=== PATIENT | male | born 1960 | race Caucasian/White ===

== ENCOUNTER 2016-07-20 20:50 | Emergency (ER) | payer MEDICAID ==
[2016-07-20 23:06] VITALS: BP 152/86
[2016-07-20] MEDS ORDERED: Ketorolac 30 MG/ML SDV IVPUSH ONE (23:19)
[2016-07-20] MEDS ORDERED: Sodium Chloride 0.9% 1,000 ML IV SCH (23:30)
[2016-07-21] MEDS ORDERED: HYDROmorphone 0.5 MG/0.5 ML Syringe IVPUSH ONE (00:33)
[2016-07-21] MEDS ORDERED: Ibuprofen 600 MG Tab PO ONE (00:33)
[2016-07-21] MEDS ORDERED: Doxycycline 100 MG in Sodium Chloride 0.9% 100 ML IV ONE (00:34)
--- NOTE | 2016-07-21 00:40 | EDM.PDOC ---
<Vijaya Sherman - Last Filed: 07/21/16 00:34> ED HISTORY OF PRESENT ILLNESS - General Chief Complaint: Fever Stated Complaint: FEVER,BODY ACHES,COUGH Time Seen by Provider: 07/20/16 23:00 Source: Reports: Patient, Family History Limitations: Reports: No limitations - History of Present Illness INITIAL COMMENTS - FREE TEXT/NARRATIVE: pt has been chilling with severe body aches. He has been sick since thursday. There grand children were with them a few days ago and were quite ill. Timing/Duration: Reports: Day(s):, Getting worse Location, General: Reports: chest Associated Symptoms: Reports: chest pain, cough, fever/chills, shortness of breath - Related Data Allergies/ADRs: Allergies Allergy/AdvReac Type Severity Reaction Status Date / Time No Known Allergies Allergy Verified 07/20/16 23:22 Home Meds: Home Meds Phenylephrine/Dm/Acetaminop/Gg [Tylenol Cold & Flu Severe Cplt] 1 each PO ASDIRECTED PRN 07/20/16 [History] Past Medical History - Infectious Disease History Infectious Disease History: Reports: Chicken pox Social & Family History - Tobacco Use Smoking Status *Q: Current Every Day Smoker Years of Tobacco use: 35 Packs/Tins Daily: 1 Used Tobacco, but Quit: No Second Hand Smoke Exposure: Yes - Caffeine Use Caffeine Use: Reports: Coffee, Soda - Alcohol Use Days Per Week of Alcohol Use: 2 Number of Drinks Per Day: 3 Total Drinks Per Week: 6 - Recreational Drug Use Recreational Drug Use: No ED ROS GENERAL - Review of Systems Review Of Systems: See Below Constitutional: Reports: fever, chills HEENT: Reports: No symptoms Respiratory: Reports: wheezing, cough, sputum Cardiovascular: Reports: No symptoms Endocrine: Reports: no symptoms GI/Abdominal: Reports: No symptoms : Reports: no symptoms Musculoskeletal: Reports: muscle pain, muscle stiffness Skin: Reports: no symptoms Neurological: Reports: no symptoms ED EXAM, GENERAL - Physical Exam Exam: See Below Free Text/Narrative:: pt is coughing markedly and has severe body aches. Exam Limited By: No limitations General Appearance: alert, anxious Ears: normal TMs Nose: normal inspection Throat/Mouth: Normal inspection Head: atraumatic Neck: normal inspection Respiratory/Chest: decreased breath sounds, wheezing Cardiovascular: regular rate, rhythm GI/Abdominal: soft, non tender (Male) Exam: Deferred Rectal (Males) Exam: Deferred Back Exam: normal inspection Extremities: normal inspection Neurological: alert, oriented Psychiatric: normal affect Course - Vital Signs Last Recorded V/S: Last Vital Signs Temp 37.1 C 07/21/16 00:54 Pulse 94 07/21/16 00:11 Resp 18 07/21/16 00:11 BP 152/86 H 07/21/16 00:11 Pulse Ox 93 L 07/21/16 00:11 - Orders/Labs/Meds Orders: Active Orders 24 hr Category Date Time Status RT Aerosol Therapy [RC] ASDIRECTED Care 07/21/16 00:41 Active Chest 2V [CR] Stat Exams 07/20/16 23:18 Taken BABESIA MICROTI IGG AND IGM [REF] Stat Lab 07/20/16 23:27 Received CULTURE BLOOD [BC] Urgent Lab 07/21/16 00:20 Received CULTURE BLOOD [BC] Urgent Lab 07/21/16 00:25 Received CULTURE RESPIRATORY + SMEAR [RM] Stat Lab 07/21/16 00:58 Ordered CULTURE STREP A CONFIRMATION [RM] Stat Lab 07/20/16 23:27 Results EHRLICHIA CHAFFEENSIS, IGG&IGM [REF] Stat Lab 07/20/16 23:27 Received LYME AB SCREEN RFLX [REF] Stat Lab 07/20/16 23:27 Received STREP SCRN A RAPID W CULT CONF [RM] Stat Lab 07/20/16 23:27 Results Sodium Chloride 0.9% [Normal Saline] 1,000 ml Med 07/20/16 23:30 Active IV ASDIRECTED Sodium Chloride 0.9% [Normal Saline] 1,000 ml Med 07/21/16 00:45 Active IV ASDIRECTED Blood Culture x2 Reflex Set [OM.PC] Urgent Oth 07/21/16 00:14 Ordered Medication Orders Sodium Chloride (Normal Saline) 1,000 mls @ 999 mls/hr IV ASDIRECTED [facility] Last Admin: 07/20/16 23:55 Dose: 999 mls/hr Sodium Chloride (Normal Saline) 1,000 mls @ 999 mls/hr IV ASDIRECTED [facility] Labs: Laboratory Tests 07/20/16 07/20/16 07/20/16 Range/Units 23:27 23:27 23:27 WBC 5.8 (4.5-11.0) K/uL RBC 4.41 (4.30-5.90) M/uL Hgb 15.5 H (12.0-15.0) g/dL Hct 43.7 (40.0-54.0) % MCV 99 H (80-98) fL MCH 35 H (27-31) pg MCHC 36 (32-36) % Plt Count 138 L (150-400) K/uL Neut % (Auto) 73 H (36-66) % Lymph % (Auto) 17 L (24-44) % [place] % (Auto) 10 H (2-6) % Eos % (Auto) 0 L (2-4) % Baso % (Auto) 1 (0-1) % Sodium 133 L (140-148) mmol/L Potassium 3.6 (3.6-5.2) mmol/L Chloride 98 L (100-108) mmol/L Carbon Dioxide 25 (21-32) mmol/L Anion Gap 13.6 (5.0-14.0) mmol/L BUN 8 (7-18) mg/dL Creatinine 1.0 (0.8-1.3) mg/dL Est Cr Clr Drug Dosing 88.21 mL/min Estimated GFR (MDRD) > 60 (>60) Glucose 106 (74-106) mg/dL Calcium 8.3 L (8.5-10.1) mg/dL Total Bilirubin 0.5 (0.2-1.0) mg/dL AST 25 (15-37) U/L ALT 26 (12-78) U/L Alkaline Phosphatase 56 (46-116) U/L C-Reactive Protein 1.02 H (0.0-0.3) mg/dL Total Protein 7.6 (6.4-8.2) g/dL Albumin 3.9 (3.4-5.0) g/dL Globulin 3.7 H (2.3-3.5) g/dL Albumin/Globulin Ratio 1.1 L (1.2-2.2) Urine Color Urine Appearance Urine pH (4.5-8.0) Ur Specific [place] (1.008-1.030) Urine Protein (NEGATIVE) mg/dL Urine Glucose (UA) (NEGATIVE) mg/dL Urine Ketones (NEGATIVE) mg/dL Urine Occult Blood (NEGATIVE) Urine Nitrite (NEGAITVE) Urine Bilirubin (NEGATIVE) Urine Urobilinogen (NORMAL) mg/dL Ur Leukocyte Esterase (NEGATIVE) Urine RBC (0-5) Urine WBC (0-5) Ur Epithelial Cells Amorphous Sediment Urine Bacteria Urine Mucus 07/21/16 Range/Units 01:08 WBC (4.5-11.0) K/uL RBC (4.30-5.90) M/uL Hgb (12.0-15.0) g/dL Hct (40.0-54.0) % MCV (80-98) fL MCH (27-31) pg MCHC (32-36) % Plt Count (150-400) K/uL Neut % (Auto) (36-66) % Lymph % (Auto) (24-44) % [place] % (Auto) (2-6) % Eos % (Auto) (2-4) % Baso % (Auto) (0-1) % Sodium (140-148) mmol/L Potassium (3.6-5.2) mmol/L Chloride (100-108) mmol/L Carbon Dioxide (21-32) mmol/L Anion Gap (5.0-14.0) mmol/L BUN (7-18) mg/dL Creatinine (0.8-1.3) mg/dL Est Cr Clr Drug Dosing mL/min Estimated GFR (MDRD) (>60) Glucose (74-106) mg/dL Calcium (8.5-10.1) mg/dL Total Bilirubin (0.2-1.0) mg/dL AST (15-37) U/L ALT (12-78) U/L Alkaline Phosphatase (46-116) U/L C-Reactive Protein (0.0-0.3) mg/dL Total Protein (6.4-8.2) g/dL Albumin (3.4-5.0) g/dL Globulin (2.3-3.5) g/dL Albumin/Globulin Ratio (1.2-2.2) Urine Color Yellow Urine Appearance Clear Urine pH 6.0 (4.5-8.0) Ur Specific [place] 1.020 (1.008-1.030) Urine Protein Negative (NEGATIVE) mg/dL Urine Glucose (UA) Normal (NEGATIVE) mg/dL Urine Ketones 15 H (NEGATIVE) mg/dL Urine Occult Blood Moderate (NEGATIVE) Urine Nitrite Negative (NEGAITVE) Urine Bilirubin Negative (NEGATIVE) Urine Urobilinogen Normal (NORMAL) mg/dL Ur Leukocyte Esterase Negative (NEGATIVE) Urine RBC 0-5 (0-5) Urine WBC 0-5 (0-5) Ur Epithelial Cells Rare Amorphous Sediment Not seen Urine Bacteria Few Urine Mucus Few Meds: Medications Generic Name Dose Route Start Last Admin Trade Name Freq PRN Reason Stop Dose Admin Sodium Chloride 1,000 mls @ 999 mls/hr 07/20/16 23:30 07/20/16 23:55 Normal Saline IV 999 mls/hr ASDIRECTED JANA Administration Sodium Chloride 1,000 mls @ 999 mls/hr 07/21/16 00:45 Normal Saline IV ASDIRECTED JANA Discontinued Medications Generic Name Dose Route Start Last Admin Trade Name Freq PRN Reason Stop Dose Admin Albuterol 2.5 mg 07/21/16 00:41 07/21/16 00:55 Proventil Neb Soln NEB 07/21/16 00:42 2.5 mg ONETIME ONE Administration Hydromorphone HCl 0.5 mg 07/21/16 00:33 07/21/16 00:43 Dilaudid IVPUSH 07/21/16 00:34 0.5 mg ONETIME ONE Administration Doxycycline Hyclate 100 mg/ 100 mls @ 100 mls/hr 07/21/16 00:34 07/21/16 00: 45 Sodium Chloride IV 07/21/16 01:33 100 mls/hr ONETIME ONE Administration Ibuprofen 600 mg 07/21/16 00:33 07/21/16 00:54 Motrin PO 07/21/16 00:34 600 mg ONETIME ONE Administration Ketorolac Tromethamine 30 mg 07/20/16 23:19 07/20/16 23:56 Toradol IVPUSH 07/20/16 23:20 30 mg ONETIME ONE Administration - Re-Assessments/Exams Free Text/Narrative Re-Assessment/Exam: 07/21/16 00:39 pt was given 2 liters of fluid doxycline 100mg was given iv. He does have a history of a tick bite late fall. The wbc is not elevated, platlets are borderline low, His stept was neg The influa and b were neg. Departure - Departure Disposition: Home, Self-Care 01 Clinical Impression: Acute bronchitis Forms: ED Department Discharge Additional Instructions: Take doxycycline 100 mg twice daily for one week. For cough he may use the guaifenesin with codeine cough medicine (240 mL) take 10 mL or 2 teaspoons every 4-6 hours as needed for cough. This medication can cause sedation so use with caution see your if you're not better in a few days. Return to ER at any time if needed <Dillon Pan - Last Filed: 07/21/16 01:59> Departure - Departure Time of Disposition: 01:56 Condition: fair
[2016-07-21] MEDS ORDERED: Albuterol 0.083% 2.5 MG/3 ML Neb Soln NEB ONE (00:41)
[2016-07-21] MEDS ORDERED: Sodium Chloride 0.9% 1,000 ML IV SCH (00:45)
--- NOTE | 2016-07-21 10:33 | CR ---
Mild cardiomegaly. No focal consolidation. Faint density right midlung zone. Difficult to exclude a pulmonary nodule. Recommend comparison to remote x-rays or CT noncontrast chest follow-up..
== END 2016-07-21 02:18 | disposition home or self-care (01) ==
LOC: JP.ED 20:50
DX: J20.9 Acute bronchitis, unspecified (principal); F17.200 Nicotine dependence, unspecified, uncomplicated; Z79.899 Other long term (current) drug therapy
CPT/HCPCS: 36415; 71020; 80053; 81001; 85025; 86140; 86618; 86666; 86753; 87040; 87081; 87205; 87430; 87804; 94640; 96361; 96374; 96375; 99284; A9270; J1170; J1885; J7030; J7040

== ENCOUNTER 2017-09-20 09:39 | Emergency (ER) | payer MEDICAID ==
[2017-09-20 10:33] VITALS: BP 106/83
--- NOTE | 2017-09-20 10:47 | EDM.PDOC ---
ED HPI GENERAL MEDICAL PROBLEM - General Chief Complaint: Respiratory Problem Stated Complaint: COUGH FEVER Time Seen by Provider: 09/20/17 10:40 Source of Information: Reports: Patient, RN Notes Reviewed History Limitations: Reports: No Limitations - History of Present Illness INITIAL COMMENTS - FREE TEXT/NARRATIVE: 56-year-old gentleman presents emergency department today complaint of cough and shortness of breath, he does use tobacco products does have a history of recurrent bronchitis has felt feverish at home, yellow sputum production and chest pain with a cough Headache Pain Score (Numeric/FACES): 7 - Related Data Allergies Allergy/AdvReac Type Severity Reaction Status Date / Time No Known Allergies Allergy Verified 09/20/17 10:33 Home Meds: Home Meds Phenylephrine/Dm/Acetaminop/Gg [Tylenol Cold & Flu Severe Cplt] 1 each PO ASDIRECTED PRN 07/20/16 [History] Hydrochlorothiazide 1 tab PO DAILY 09/20/17 [History] Past Medical History Cardiovascular History: Reports: Hypertension - Infectious Disease History Infectious Disease History: Reports: Chicken Pox Social & Family History - Tobacco Use Smoking Status *Q: Light Tobacco Smoker Years of Tobacco use: 32 Packs/Tins Daily: 0.5 - Caffeine Use Caffeine Use: Reports: Coffee, Soda - Recreational Drug Use Recreational Drug Use: No ED ROS GENERAL - Review of Systems Review Of Systems: See Below Constitutional: Reports: Fever, Chills HEENT: Reports: No Symptoms Respiratory: Reports: Shortness of Breath, Cough, Sputum. Denies: Wheezing Cardiovascular: Reports: Chest Pain (With a cough) GI/Abdominal: Reports: No Symptoms : Reports: No Symptoms Musculoskeletal: Reports: No Symptoms Skin: Reports: No Symptoms ED EXAM, GENERAL - Physical Exam Exam: See Below Exam Limited By: No Limitations General Appearance: Alert, WD/WN, No Apparent Distress Eye Exam: Bilateral Eye: Normal Inspection Ears: Normal External Exam, Normal Canal, Hearing Grossly Normal, Normal TMs Nose: Normal Inspection, Normal Mucosa, No Blood Throat/Mouth: Normal Inspection, Normal Lips, Normal Teeth, Normal Gums, Normal Oropharynx, Normal Voice, No Airway Compromise Head: Atraumatic, Normocephalic Neck: Normal Inspection, Supple, Non-Tender, Full Range of Motion Respiratory/Chest: No Respiratory Distress, Lungs Clear, Normal Breath Sounds, No Accessory Muscle Use, Chest Non-Tender Cardiovascular: Regular Rate, Rhythm, No Murmur Course - Vital Signs Last Recorded V/S: Last Vital Signs Temp 98.7 F 09/20/17 10:31 Pulse 93 09/20/17 10:31 Resp 14 09/20/17 10:31 BP 106/83 09/20/17 10:31 Pulse Ox 93 L 09/20/17 10:31 Departure - Departure Time of Disposition: 10:46 Disposition: Home, Self-Care 01 Condition: Good Clinical Impression: Acute bronchitis Qualifiers: Bronchitis organism: other organism Qualified Code(s): J20.8 - Acute bronchitis due to other specified organisms - Discharge Information Referrals: Angie Diehl MD [Primary Care Provider] - Additional Instructions: Take full course of antibiotics, use albuterol inhaler as needed for shortness of breath symptoms, Please followup with your primary care provider in 5-7 days if not better, please call return to the emergency department with worsening of symptoms. - Assessment/Plan Plan: Assessment Acuity = acute Site and laterality = bronchitis complicated in a gentleman history of tobacco use and dependence Etiology = suspicious for bacterial cause Manifestations = cough, dyspnea Location of injury = Home Lab values = none Plan Prescription written for doxycycline 100 mg by mouth twice a day 7 days, albuterol inhaler 1 puff every 2 hours when necessary, follow-up with primary care in 7-10 days if no improvement This note was dictated using [employer] voice recognition software please call with any questions on syntax or grammar.
== END 2017-09-20 11:05 | disposition home or self-care (01) ==
LOC: JP.ED 09:39
DX: J20.8 Acute bronchitis due to other specified organisms (principal); F17.210 Nicotine dependence, cigarettes, uncomplicated; I10 Essential (primary) hypertension
CPT/HCPCS: 99283

== ENCOUNTER 2021-03-29 14:03 | Emergency (ER) | payer MEDICAID, OTHER ==
[2021-03-29] MEDS ORDERED: Sodium Chloride 0.9% 10 ML Syringe FLUSH PRN (14:21)
[2021-03-29] MEDS ORDERED: HYDROmorphone 1 MG/ML Syringe IVPUSH ONE (14:21)
[2021-03-29] MEDS ORDERED: Ondansetron 4 MG/2 ML SDV IVPUSH ONE (14:21)
--- NOTE | 2021-03-29 14:28 | EDM.PDOC ---
ED HPI GENERAL MEDICAL PROBLEM - General Chief Complaint: General Stated Complaint: FELL ON ICE, RIB PAIN Time Seen by Provider: 03/29/21 14:08 Source of Information: Reports: Patient History Limitations: Reports: No Limitations - History of Present Illness INITIAL COMMENTS - FREE TEXT/NARRATIVE: Jake is a 60-year-old male presenting to the ED for evaluation of severe right chest pain and shortness of breath after sustaining a fall on the ice and landing on his right side 2 days ago. The patient was on the driveway retrieving firewood when he slipped causing him to fall on his right side on the concrete. The patient initially had some mild pain, however, today the pain is significantly worsened causing splinted respirations and shortness of breath. The patient denies any head injury, loss of consciousness, neck or back pain. Is been able to ambulate. He did have his fiance bring him in for evaluation today as he did not feel he could drive. Not had any hemoptysis. Right Flank Pain Score (Numeric/FACES): 7 - Related Data Allergies Allergy/AdvReac Type Severity Reaction Status Date / Time No Known Allergies Allergy Verified 09/20/17 10:33 Home Meds: Home Meds Phenylephrine/Dm/Acetaminop/Gg [Tylenol Cold & Flu Severe Cplt] 1 each PO ASDIRECTED PRN 07/20/16 [History] hydroCHLOROthiazide [Hydrochlorothiazide] 1 tab PO DAILY 09/20/17 [History] Past Medical History Cardiovascular History: Reports: Hypertension - Infectious Disease History Infectious Disease History: Reports: Chicken Pox Social & Family History - Caffeine Use Caffeine Use: Reports: Coffee, Soda ED ROS GENERAL - Review of Systems Review Of Systems: See Below Constitutional: Reports: No Symptoms HEENT: Reports: No Symptoms Respiratory: Reports: Shortness of Breath. Denies: Cough, Sputum, Hemoptysis Cardiovascular: Reports: Chest Pain (Right lower anterior lateral chest pain.), Other (No bruising or crepitus noted.) Endocrine: Reports: No Symptoms GI/Abdominal: Reports: No Symptoms : Reports: No Symptoms Musculoskeletal: Reports: No Symptoms Skin: Reports: No Symptoms Neurological: Reports: No Symptoms Psychiatric: Reports: No Symptoms ED EXAM, GENERAL - Physical Exam Exam: See Below Exam Limited By: No Limitations General Appearance: Alert, Anxious, Moderate Distress Eye Exam: Bilateral Eye: EOMI, PERRL Throat/Mouth: Normal Oropharynx, Normal Voice, No Airway Compromise Head: Atraumatic, Normocephalic Neck: Normal Inspection, Supple Respiratory/Chest: Lungs Clear, Decreased Breath Sounds (Patient not taking very deep breaths), Splinting, Other (Severe tenderness to palpation over the lower right anterior lateral chest wall. There is no crepitus or bruising noted.) Cardiovascular: Normal Peripheral Pulses, Regular Rate, Rhythm, No Murmur Peripheral Pulses: 2+: Radial (L), Radial (R) GI/Abdominal: Normal Bowel Sounds, Soft, Non-Tender Back Exam: Normal Inspection Extremities: Normal Inspection Neurological: Alert, Oriented, Normal Cognition, No Motor/Sensory Deficits Psychiatric: Anxious Skin Exam: Warm, Dry, Intact, Normal Color. No: Ecchymosis Course - Vital Signs Last Recorded V/S: Last Vital Signs Temp 36.5 C 03/29/21 14:37 Pulse 72 03/29/21 15:06 Resp 16 03/29/21 15:06 BP 152/100 H 03/29/21 15:06 Pulse Ox 95 03/29/21 15:06 - Orders/Labs/Meds Orders: Active Orders 24 hr Category Date Time Status Ribs 3V wo Chest Rt [CR] Stat Exams 03/29/21 14:08 Stop Req Sodium Chloride 0.9% [Saline Flush] Med 03/29/21 14:21 Active 10 ml FLUSH ASDIRECTED PRN Saline Lock Insert [OM.PC] Routine Oth 03/29/21 14:21 Ordered Medication Orders Sodium Chloride (Sodium Chloride 0.9% 10 Ml Syringe) 10 ml FLUSH ASDIRECTED PRN PRN Reason: Keep Vein Open Last Admin: 03/29/21 14:36 Dose: 10 ml Documented by: GATITO Meds: Medications Generic Name Dose Route Start Last Admin Trade Name Freq PRN Reason Stop Dose Admin Sodium Chloride 10 ml 03/29/21 14:21 03/29/21 14:36 Sodium Chloride 0.9% 10 Ml Syringe FLUSH 10 ml ASDIRECTED PRN Administration Keep Vein Open Discontinued Medications Generic Name Dose Route Start Last Admin Trade Name Freq PRN Reason Stop Dose Admin Hydromorphone HCl 1 mg 03/29/21 14:21 03/29/21 14:30 Hydromorphone 1 Mg/Ml Syringe IVPUSH 03/29/21 14:22 1 mg ONETIME ONE Administration Ondansetron HCl 4 mg 03/29/21 14:21 Ondansetron 4 Mg/2 Ml Sdv IVPUSH 03/29/21 14:22 ONETIME ONE - Radiology Interpretation Free Text/Narrative:: Reviewed the images of the CT chest without contrast as well as the report. The report is as follows: Impression: Patchy bilateral lower lobe densities may represent some patchy atelectasis. Infiltrate is less likely. Mild generalized hyper aeration. 2.7 x 1.3 cm nonspecific nodule in the right adrenal gland. Dedicated CT or MR using an adrenal protocol is recommended on a nonemergent basis. Dictated by Jeffery Narayanan MD on 03/29/2021 at 15:04 There was no evidence for any rib fractures. Departure - Departure Time of Disposition: 15:55 Disposition: Home, Self-Care 01 Clinical Impression: Fall due to ice or snow Qualifiers: Encounter type: initial encounter Qualified Code(s): W00.9XXA - Unspecified fall due to ice and snow, initial encounter Contusion of rib on right side Qualifiers: Encounter type: initial encounter Qualified Code(s): S20.211A - Contusion of right front wall of thorax, initial encounter Right pulmonary contusion Qualifiers: Encounter type: initial encounter Qualified Code(s): S27.321A - Contusion of lung, unilateral, initial encounter - Discharge Information Instructions: Blunt Chest Trauma, Pulmonary Contusion, Adult Referrals: Carolina Summers DO [Primary Care Provider] - Forms: ED Department Discharge Care Plan Goals: Your work-up today has shown that you have bruising to the right chest wall/ribs as well as to the right lung from your recent fall on the ice. This will take anywhere between 2 and 4 weeks to heal. There was no evidence on your CT of the chest of any rib fractures. I would recommend applying a lidocaine patch over the area of the most pain every 24 hours. I would recommend getting Salonpas 4% patches. I am also going to send you home with a small amount of hydrocodone for pain control. Please use it quite sparingly because over time it will actually make the pain worse. Please be careful on the ice. Should you develop any significant worsening in your shortness of breath or pain please return for reevaluation. Sepsis Event Note (ED) - Focused Exam Vital Signs: Vital Signs Temp Pulse Resp BP Pulse Ox 03/29/21 15:06 72 16 152/100 H 95 03/29/21 14:37 36.5 C 74 18 175/115 H 96 - Problem List & Annotations (1) Contusion of rib on right side SNOMED Code(s): 678618977 Code(s): S20.211A - CONTUSION OF RIGHT FRONT WALL OF THORAX, INITIAL ENCOUNTER Status: Acute Priority: Medium Current Visit: Yes Qualifiers: Encounter type: initial encounter Qualified Code(s): S20.211A - Contusion of right front wall of thorax, initial encounter (2) Fall due to ice or snow SNOMED Code(s): 799129597 Code(s): W00.9XXA - UNSPECIFIED FALL DUE TO ICE AND SNOW, INITIAL ENCOUNTER Status: Acute Priority: Medium Current Visit: Yes Qualifiers: Encounter type: initial encounter Qualified Code(s): W00.9XXA - Unspecified fall due to ice and snow, initial encounter (3) Right pulmonary contusion SNOMED Code(s): 623882148 Code(s): S27.321A - CONTUSION OF LUNG, UNILATERAL, INITIAL ENCOUNTER Status: Acute Priority: Medium Current Visit: Yes Qualifiers: Encounter type: initial encounter Qualified Code(s): S27.321A - Contusion of lung, unilateral, initial encounter - Problem List Review Problem List Initiated/Reviewed/Updated: Yes - My Orders Last 24 Hours: My Active Orders 03/29/21 14:08 Ribs 3V wo Chest Rt [CR] Stat 03/29/21 14:21 Sodium Chloride 0.9% [Saline Flush] 10 ml FLUSH ASDIRECTED PRN Saline Lock Insert [OM.PC] Routine - Assessment/Plan Last 24 Hours: My Active Orders 03/29/21 14:08 Ribs 3V wo Chest Rt [CR] Stat 03/29/21 14:21 Sodium Chloride 0.9% [Saline Flush] 10 ml FLUSH ASDIRECTED PRN Saline Lock Insert [OM.PC] Routine
[2021-03-29 15:06] VITALS: BP 152/100; PULSE 72
--- NOTE | 2021-03-29 15:07 | CT ---
Chest wo Cont CLINICAL HISTORY: Previous fall, pain, dyspnea TECHNIQUE: Transverse scans were obtained from the thoracic inlet to the lung bases without contrast. Auto dosage reduction in intervertebral reconstruction techniques were employed COMPARISONS: None FINDINGS: The lungs are generally hyperaerated. There is some diffuse bronchiectasis. There are patchy densities in both lung bases. This may represent some subsegmental atelectasis. Patchy infiltrates are felt less likely No evidence of pneumothorax. No significant pleural effusion is identified. No fractures identified. No mediastinal mass or lymphadenopathy is seen. There is mild ectasia of the aortic arch. There is mild cardiomegaly. There is a is a 2.7 x 1.3 cm nodule on the right adrenal gland. Density measurement is above the fat range. IMPRESSION: Patchy bilateral lower lobe densities may represent some patchy atelectasis. Infiltrate is felt less likely Mild generalized hyperaeration 2.7 x 1.3 cm nonspecific nodule right adrenal gland. Dedicated CT or MR using an adrenal protocol is recommended on a nonemergent basis
[2021-03-29] MEDS ORDERED: Lidocaine 5% 700 MG Patch TRDERM ONE (15:50)
== END 2021-03-29 16:10 | disposition home or self-care (01) ==
LOC: JP.ED 14:03
DX: S20.211A Contusion of right front wall of thorax, initial encounter (principal); I10 Essential (primary) hypertension; W00.0XXA Fall on same level due to ice and snow, initial encounter
CPT/HCPCS: 71250; 96374; 99285; A9270; J1170

== ENCOUNTER 2023-05-11 10:15 | Emergency (ER) | payer MEDICAID, OTHER ==
[2023-05-11 11:40] LABS: STREP A BY PCR NOT DETECTED (NOT DETECT)
[2023-05-11 11:51] LABS: INFLUENZA A NAA NEGATIVE (NEGATIVE); INFLUENZA B NAA NEGATIVE (NEGATIVE); RESPIRATORY SYNCYTIAL VIR NAA NEGATIVE (NEGATIVE)
[2023-05-11 11:52] LABS: CORONAVIRUS COVID-19 NAA POSITIVE (NEGATIVE)
[2023-05-11 12:40] VITALS: BP 120/89; PULSE 89
== END 2023-05-11 12:35 | disposition home or self-care (01) ==
LOC: JP.ED 10:15
DX: U07.1 COVID-19 (principal); I10 Essential (primary) hypertension; J44.9 Chronic obstructive pulmonary disease, unspecified; Z79.899 Other long term (current) drug therapy
CPT/HCPCS: 0241U; 87651; 99284